=== PATIENT | female | born 1940 | race Caucasian/White ===

== ENCOUNTER 2016-10-04 02:46 | Emergency (ER) | payer MEDICAID ==
[~2016-10-04] VITALS: Ht 162.6 cm; Wt 79.5 kg
[~2016-10-04 02:46] MED LIST: CLON-379 PO; FER325 PO; LAS20 PO; LISI-523 PO; NAPR-685 PO
[2016-10-04 03:20] VITALS: Ht 162.6 cm; Wt 79.5 kg
[2016-10-04] MEDS ORDERED: predniSONE 20 MG TAB PO STA (03:37)
[2016-10-04] MEDS ORDERED: IPRATROPIUM (NEB) 0.5 MG/2.5 ML AMP NEB STA (03:37)
[2016-10-04] MEDS ORDERED: ALBUTEROL 0.083% (NEB) 2.5 MG/3 ML AMP NEB STA (03:37)
--- NOTE | 2016-10-04 04:14 | RADRPT ---
PROCEDURE: Chest. CLINICAL INDICATION: Cough. TECHNIQUE: Single frontal view of the chest was obtained. COMPARISON: 11/13/2015. FINDINGS: The cardiac silhouette is enlarged. The aortic arch is calcified. There is mild pulmonary venous c ongestion. There is no focal consolidation or pleural effusion. There is no pneumothorax. IMPRESSION: Cardiomegaly and mild pulmonary venous congestion. Aortic atherosclerosis. .Jim Archuleta MD, Date Time Electronically viewed and signed by .Jim Archuleta MD, MD on 10/04/2016 04:14 .T/
[2016-10-04] MEDS ORDERED: AZIT250T94 PO (04:21)
--- NOTE | 2016-10-04 04:24 | ERD ---
ER Documentation Chief Complaint Date/Time DATE: 10/04/16 TIME: 04:22 Chief Complaint cough x 1 week, denies fever HPI Patient is a 76-year-old female who presents with cough that has been going on for 1 week and it is worse at night. Patient has been taking Tylenol and over the counter medications which have not helped. Denies fever. Denies nausea vomiting or diarrhea. Cough is dry with occasional clear to yellow colored phlegm. Denies any chest pain or shortness of breath. Denies any hemoptysis. ROS All systems reviewed and are negative except as per history of present illness. Medications Home Meds Active Scripts Azithromycin* (Zithromax*) 250 Mg Tablet, 250 MG PO .ZPACK DIRECTED, #6 TAB TAKE 500 MG (2 TABS) THE FIRST DAY THEN 250 MG (1 TAB) DAYS 2-5 Prov:AIDE DUNLAP PA-C 10/04/16 Furosemide (Lasix) 20 Mg Tab, 20 MG PO DAILY for 5 Days, TAB Prov:ISABELLE STAUFFER 11/14/15 Clonidine Hcl* (Clonidine Hcl*) 0.1 Mg Tab, 0.1 MG PO Q4H Y for sbp>160, #20 TAB Prov:ISABELLE STAUFFER 11/14/15 Lisinopril* (Zestril*) 5 Mg Tablet, 5 MG PO DAILY, #30 TAB Prov:ISABELLE STAUFFER 11/14/15 Ferrous Sulfate* (Ferrous Sulfate*) 325 Mg Tabec, 325 MG PO TID for 30 Days, TAB Prov:ISABELLE STAUFFER 11/14/15 Reported Medications Naproxen* (Naproxen*) 375 Mg Tablet, 375 MG PO BID Y for PAIN, TAB 11/13/15 Allergies Allergies: Coded Allergies: No Known Allergy (Unverified , 11/13/15) PMhx/Soc History of Surgery: No (cataracts 2 yrs ago) Anesthesia Reaction: No Hx Neurological Disorder: No Hx Respiratory Disorders: No Hx Cardiac Disorders: No Hx Psychiatric Problems: No Hx Miscellaneous Medical Probl: No Hx Alcohol Use: No Hx Substance Use: No Hx Tobacco Use: Yes Smoking Status: Former smoker FmHx Family History: No diabetes Physical Exam Vitals Vital Signs Date Time Temp Pulse Resp B/P Pulse Ox O2 Delivery O2 Flow Rate FiO2 10/04/16 03:44 85 20 96 21 1/6/17 03:20 98.5 88 20 143/63 97 Physical Exam General: well developed, well nourished, alert, nontoxic, no distress Head: normocephalic, atraumatic Neck: Supple, nontender, no lymphadenopathy, no midline tenderness Oropharynx: no tonsilar erythema or edema, uvula midline, no exudates, no kissing tonsils, no drooling Respiratory: Clear to auscaultation bilaterally, speaks in full sentences, no use of accesory muscles or labored breathing, no rales, ronchi, or wheezing Cardiovascular: RRR, No murmurs GI: soft, non tender, non distended, negative murphys sign, negative mcburneys point tenderness Results 24 hrs Current Medications Medications (Trade) Dose Ordered Sig/Kadeem Route PRN Reason Start Time Stop Time Status Last Admin Dose Admin Albuterol (Proventil 0.083% (Neb)) 2.5 mg ONCE STAT NEB 10/04/16 03:37 10/04/16 03:39 DC 10/04/16 03:44 Ipratropium [place] (Atrovent 0.02% (Neb)) 0.5 mg ONCE STAT NEB 10/04/16 03:37 10/04/16 03:39 DC 10/04/16 03:44 Prednisone (Prednisone) 40 mg ONCE STAT PO 10/04/16 03:37 10/04/16 03:39 DC 10/04/16 03:45 Procedures/MDM 68-year-old female presents with cough and congestion for 1 week. She is afebrile well-appearing in no distress. She was given a breathing treatment and had improvement of her symptoms. Chest x-ray was ordered and it did not show any evidence of pneumonia. I reviewed the chest x-ray with my supervising physician Dr. Garcia we agreed she is suitable for outpatient management she was given a prescription for azithromycin Z-Anthony. Recommended this patient follow up with her primary care doctor within 48 hours or return to the emergency room for any worsening of symptoms. However this time I do believe there is suitable for outpatient management. I answered all their questions and they agreed with the plan and were discharged home. Departure Diagnosis: Primary Impression: Bronchitis Condition: Stable Patient Instructions: Bronchitis, Antiobiotic Treatment (Adult) Additional Instructions: Call your primary care doctor TOMORROW for an appointment during the next 1-2 days.See the doctor sooner or return here if your condition worsens before your appointment time. AIDE DUNLAP PA-C Oct 04, 2016 04:24
== END 2016-10-04 04:32 | disposition home or self-care (01) ==
LOC: FTE 02:46
DX: J20.9 Acute bronchitis, unspecified (principal); Z87.891 Personal history of nicotine dependence
CPT/HCPCS: 71010; 94664; J7512; Z7502; Z7610

== ENCOUNTER 2017-01-20 14:08 | Emergency (ER) | payer MEDICAID ==
[~2017-01-20] VITALS: Ht 152.4 cm; Wt 68.2 kg
[~2017-01-20 14:08] MED LIST changes: +AZIT250T94 PO
[2017-01-20 14:13] VITALS: Ht 152.4 cm; Wt 68.2 kg
--- NOTE | 2017-01-20 16:24 | RADRPT ---
PROCEDURE: XR Chest 1 View. CLINICAL INDICATION: Cough TECHNIQUE: AP view of the chest was obtained. COMPARISON: October 04, 2016 FINDINGS: The heart size is within normal limits. Calcified atherosclerosis is noted in the aorta. The lungs are hyperexpanded. Chronic mild interstitial prominence is seen in both lungs. No consolidations ar e identified. No pneumothorax is seen. Minimal subsegmental atelectasis is seen at the left lung ba se. Osseous structures are intact. IMPRESSION: Calcified atherosclerosis in the aorta. Hyperexpanded lungs with diffuse mild interstitial prominence in both lungs. Interstitial prominenc e could be chronic. Findings could reflect COPD. Minimal atelectasis at the left lung base. RPTAT: AA .Nelson Roper MD, MD Date Time Electronically viewed and signed by .Nelson Roper MD, on 01/20/2017 16:24 .P/
[2017-01-20] MEDS ORDERED: D-ME473S18 PO (16:31)
[2017-01-20] MEDS ORDERED: AZIT250T94 PO (16:31)
--- NOTE | 2017-01-20 16:34 | ERD ---
ER Documentation Chief Complaint Date/Time DATE: 01/20/17 TIME: 16:33 Chief Complaint SHORTNESS OF BREATH X 7 DAYS HPI This 68-year-old female presents with productive cough for last 7 days. There is no history of chest pain, fevers, shortness breath, vomiting, abdominal pain. ROS All systems reviewed and are negative except as per history of present illness. Medications Home Meds Active Scripts Dextromethorphan Hb-Promethazine Hcl (Promethazine DM Syrup) 473 Ml Syrup, 5 ML PO Q6H Y for COUGH, #4 OZ Prov:OSCAR NAVAS MD 01/20/17 Azithromycin* (Zithromax*) 250 Mg Tablet, 250 MG PO .ZPACK DIRECTED, #6 TAB TAKE 500 MG (2 TABS) THE FIRST DAY THEN 250 MG (1 TAB) DAYS 2-5 Prov:OSCAR NAVAS MD 01/20/17 Azithromycin* (Zithromax*) 250 Mg Tablet, 250 MG PO .ZPACK DIRECTED, #6 TAB TAKE 500 MG (2 TABS) THE FIRST DAY THEN 250 MG (1 TAB) DAYS 2-5 Prov:AIDE DUNLAP PA-C 10/04/16 Furosemide (Lasix) 20 Mg Tab, 20 MG PO DAILY for 5 Days, TAB Prov:ISABELLE STAUFFER 11/14/15 Clonidine Hcl* (Clonidine Hcl*) 0.1 Mg Tab, 0.1 MG PO Q4H Y for sbp>160, #20 TAB Prov:ISABELLE STAUFFER 11/14/15 Lisinopril* (Zestril*) 5 Mg Tablet, 5 MG PO DAILY, #30 TAB Prov:ISABELLE STAUFFER 11/14/15 Ferrous Sulfate* (Ferrous Sulfate*) 325 Mg Tabec, 325 MG PO TID for 30 Days, TAB Prov:ISABELLE STAUFFER 11/14/15 Reported Medications Naproxen* (Naproxen*) 375 Mg Tablet, 375 MG PO BID Y for PAIN, TAB 11/13/15 Allergies Allergies: Coded Allergies: No Known Allergy (Unverified , 01/20/17) PMhx/Soc History of Surgery: No (cataracts 2 yrs ago) Anesthesia Reaction: No Hx Neurological Disorder: No Hx Respiratory Disorders: No Hx Cardiac Disorders: No Hx Psychiatric Problems: No Hx Miscellaneous Medical Probl: No Hx Alcohol Use: No Hx Substance Use: No Hx Tobacco Use: Yes Smoking Status: Current every day smoker Physical Exam Vitals Vital Signs Date Time Temp Pulse Resp B/P Pulse Ox O2 Delivery O2 Flow Rate FiO2 01/20/17 14:13 98.6 86 18 138/60 96 Physical Exam Const: [] Alert, not ill-appearing. Head: Atraumatic Eyes: Normal Conjunctiva ENT: Normal External Ears, Nose and Mouth. Neck: Full range of motion..~ No meningismus. No JVD Resp: Clear to auscultation bilaterally. Slight rhonchi without rales, wheezing, retractions Cardio: Regular rate and rhythm, no murmurs Abd: Soft, non tender, non distended. Normal bowel sounds Skin: No petechiae or rashes Back: No midline or flank tenderness Ext: No cyanosis, or edema Neur: Awake and alert Psych: Normal Mood and Affect Procedures/MDM Chest X-ray 1V Interpreted by me: Soft Tissue: No acute abnormalities Bones: No acute abnormalities Mediastinum/Cardiac Silhouette/Lungs: [No acute abnormalities]. Impression- no acute findings on 1 view chest x-ray Patient presents with productive cough last week. There is no signs or symptoms to suggest acute coronary syndrome, pneumonia, PE, CHF, hemothorax, pneumothorax, aortic dissection. Patient was treated for bronchitis with Zithromax and Promethazine DM. The patient was stable with no new complaints during the ER course. Clinically, there is no current evidence to suggest meningitis, sepsis, acute abdomen, pneumonia, acute coronary syndrome, pulmonary embolism, or any other emergent condition appearing to require further evaluation or hospitalization. The patient should certainly return for any new or worsening symptoms per the aftercare instructions. They should otherwise follow-up with her primary care doctor for reevaluation this week. Departure Diagnosis: Primary Impression: URI, acute Condition: Stable Patient Instructions: Acute Bronchitis Additional Instructions: No pneumonia seen on x-ray. Recheck for new or worsening symptoms with primary care doctor. We will treat for bronchitis. OSCAR NAVAS MD Jan 20, 2017 16:34
[2017-01-20 16:45] VITALS: BP 118/74; PULSE 72; RESP 19; TEMP 98.3
== END 2017-01-20 16:45 | disposition home or self-care (01) ==
LOC: FTE 14:08
DX: J06.9 Acute upper respiratory infection, unspecified (principal); F17.210 Nicotine dependence, cigarettes, uncomplicated
CPT/HCPCS: 71010; Z7502

== ENCOUNTER 2017-10-04 22:00 | Emergency (ER) | END 2017-10-05 06:03 | disposition home or self-care (01) ==

== ENCOUNTER 2017-10-07 18:07 | Emergency (ER) | END 2017-10-07 22:56 | disposition home or self-care (01) ==